=== PATIENT | female | born 1995 | race Two or more races ===

== ENCOUNTER → 2024-01-03 | Outpatient (REF) | payer OTHER | LOC: M PLALAB 14:22 | PROVIDERS: ATTEND Advanced Practice Midwife | DX: Z34.81 Encounter for supervision of other normal pregnancy, first trimester (principal); Z53.9 Procedure and treatment not carried out, unspecified reason ==

== ENCOUNTER → 2024-01-28 | Outpatient (CLI) | payer OTHER | LOC: M WHC 13:05 | PROVIDERS: ATTEND Advanced Practice Midwife | DX: Z36.89 Encounter for other specified antenatal screening (principal); Z3A.14 14 weeks gestation of pregnancy ==

== ENCOUNTER → 2024-01-28 | Outpatient (CLI) | payer OTHER ==
[2024-01-28 15:32] LABS: HEMATOCRIT 36.2 % (36.0-47.0); HEMOGLOBIN 12.2 g/dl (12.0-15.5); MEAN CORPUSCULAR HEMOGLOBIN 31.4 pg (27.0-33.0); MEAN CORPUSCULAR HGB CONC 33.7 g/dl (32.0-36.5); MEAN CORPUSCULAR VOLUME 93.1 fl (80.0-96.0); PLATELET COUNT, AUTOMATED 247 10^3/uL (150-450); RED BLOOD COUNT 3.89 10^6/uL (4.00-5.40)
[2024-01-28 16:54] LABS: GC DNA AMPLIFICATION NEGATIVE (NEGATIVE)
[2024-01-29 16:02] LABS: HIV 1&2 SCREEN NEGATIVE (NEGATIVE)
[2024-01-29 16:10] LABS: HEPATITIS C VIRUS ABY INDEX 0.02 INDEX (<0.8)
== END ==
LOC: M PLALAB 13:10
PROVIDERS: ATTEND Advanced Practice Midwife
DX: O30.091 Twin pregnancy, unable to determine number of placenta and number of amniotic sacs, first trimester (principal); Z3A.00 Weeks of gestation of pregnancy not specified

== ENCOUNTER → 2024-02-28 | Outpatient (CLI) | payer OTHER | LOC: M WHC 09:32 | PROVIDERS: ATTEND Advanced Practice Midwife | DX: Z34.82 Encounter for supervision of other normal pregnancy, second trimester (principal); Z3A.19 19 weeks gestation of pregnancy | CPT/HCPCS: 76811; G0463 ==

== ENCOUNTER → 2024-04-17 | Outpatient (CLI) | payer OTHER ==
[2024-04-17 15:22] LABS: HEMATOCRIT 35.7 % (36.0-47.0); HEMOGLOBIN 11.8 g/dl (12.0-15.5); MEAN CORPUSCULAR HEMOGLOBIN 31.6 pg (27.0-33.0); MEAN CORPUSCULAR HGB CONC 33.1 g/dl (32.0-36.5); MEAN CORPUSCULAR VOLUME 95.7 fl (80.0-96.0); PLATELET COUNT, AUTOMATED 240 10^3/uL (150-450); RED BLOOD COUNT 3.73 10^6/uL (4.00-5.40); WHITE BLOOD COUNT 12.8 10^3/uL (4.0-10.0)
[2024-04-17 15:52] LABS: GLUCOSE CHALLENGE TEST 1 HOUR 96 MG/DL (LESS THAN 140)
[2024-04-17 16:28] LABS: HIV 1&2 SCREEN NEGATIVE (NEGATIVE)
[2024-04-17 16:42] LABS: GC DNA AMPLIFICATION NEGATIVE (NEGATIVE)
[2024-04-17 19:11] LABS: HEPATITIS C VIRUS ABY INDEX 0.16 INDEX (<0.8)
== END ==
LOC: M PLALAB 11:19
PROVIDERS: ATTEND Obstetrics & Gynecology
DX: Z34.92 Encounter for supervision of normal pregnancy, unspecified, second trimester (principal)

== ENCOUNTER → 2024-05-05 | Outpatient (CLI) | payer OTHER | LOC: M WHC 08:45 | PROVIDERS: ATTEND Obstetrics & Gynecology | DX: Z34.93 Encounter for supervision of normal pregnancy, unspecified, third trimester (principal) ==

== ENCOUNTER → 2024-06-28 | Outpatient (REF) | payer OTHER | LOC: M SFHCWAGY 16:57 | PROVIDERS: ATTEND Obstetrics & Gynecology | DX: Z36.85 Encounter for antenatal screening for Streptococcus B (principal); Z3A.36 36 weeks gestation of pregnancy ==

== ENCOUNTER 2024-07-03 03:38 | Inpatient (IN) | payer OTHER ==
[~2024-07-03] VITALS: Ht 170.2 cm; Wt 86.4 kg
[2024-07-03] MEDS ORDERED: OXYTOCIN INJ 10UNITS/ML 1ML VIAL As Ordered ONE (03:58)
[2024-07-03] MEDS ORDERED: OXYTOCIN 30UNITS IN 0.9% NaCl 500ML IV BAG As Ordered ONE (03:58)
[2024-07-03] MEDS ORDERED: LIDOCAINE 1% MDV 20ML VIAL INFIL PRN (04:15)
[2024-07-03] MEDS ORDERED: OXYTOCIN DRIP 30 UNITS in IV 1 EA IV PRN (04:15)
[2024-07-03] MEDS ORDERED: LIDOCAINE 1% MDV 20ML VIAL As Ordered ONE (04:19)
[2024-07-03] MEDS ORDERED: UNRESOLVED CLARIFICATION ENTRY XX STA (04:21)
[2024-07-03] MEDS ORDERED: PRENTAB9 PO (04:24)
[2024-07-03] MEDS ORDERED: METF10004 PO (04:28)
[2024-07-03] MEDS ORDERED: LR 1,000 ML IV SCH (04:40)
[2024-07-03 04:41] LABS: CORD GAS ABE V -4.9; CORD GAS HCO3 V 17.7 MMOL/L; CORD GAS O2 SAT V 81.5 %; CORD GAS PCO2 V 28.3 mmHg; CORD GAS PH V 7.414 UNITS; CORD GAS SBC V 20.1 MMOL/L; CORD GAS TCO2 V 18.6 MMOL/L
[2024-07-03 04:42] LABS: CORD GAS ABE A -6.9; CORD GAS HCO3 A 20.2 MMOL/L; CORD GAS O2 SAT A 27.2 %; CORD GAS PCO2 A 46.1 mmHg; CORD GAS PH A 7.26 UNITS; CORD GAS PO2 A 14.9 mmHg; CORD GAS SBC A 17.3 MMOL/L; CORD GAS TCO2 A 21.6 MMOL/L
[2024-07-03] MEDS ORDERED: RHOGAM 300MCG (1500IU) INJ IM SCH (04:45)
[2024-07-03] MEDS ORDERED: METHYLERGONOVINE MALEATE 0.2 MG TAB PO PRN (04:45)
[2024-07-03] MEDS ORDERED: OXYTOCIN DRIP 30 UNITS in IV 1 EA IV SCH (04:45)
[2024-07-03] MEDS ORDERED: ACETAMINOPHEN 325 MG TAB PO PRN (04:45)
[2024-07-03] MEDS ORDERED: IBUPROFEN 600MG TAB PO PRN (04:45)
[2024-07-03 04:47] LABS: BASO # 0.1 10^3/uL (0.0-0.2); BASO % 0.3 % (0.0-1.0); EOS # 0.1 10^3/uL (0.0-0.5); EOS % 0.8 % (0.0-3.0); HEMATOCRIT 35.3 % (36.0-47.0); HEMOGLOBIN 12.1 g/dl (12.0-15.5); LYMPH % 23.2 % (24.0-44.0); MEAN CORPUSCULAR HEMOGLOBIN 31.5 pg (27.0-33.0); MEAN CORPUSCULAR HGB CONC 34.3 g/dl (32.0-36.5); MEAN CORPUSCULAR VOLUME 91.9 fl (80.0-96.0); MONO % 5.7 % (2.0-8.0); NEUTROPHILS % 69.6 % (36.0-66.0); PLATELET COUNT, AUTOMATED 243 10^3/uL (150-450); RED BLOOD COUNT 3.84 10^6/uL (4.00-5.40); WHITE BLOOD COUNT 17.2 10^3/uL (4.0-10.0)
[2024-07-03] MEDS: ACETAMINOPHEN 500 MG TAB PO PRN (05:02)
[2024-07-03] MEDS: OXYTOCIN DRIP 30 UNITS in IV 1 EA IV SCH (05:02)
[2024-07-03] MEDS: IBUPROFEN 800 MG TAB PO PRN (05:03)
[2024-07-03 06:02] LABS: HEPATITIS C VIRUS ABY INDEX 0.13 INDEX (<0.8)
[2024-07-03 06:40] VITALS: BP 137/84; O2SAT 96
[2024-07-03] MEDS: DOCUSATE SODIUM 100MG CAPSULE PO PRN (09:44)
[2024-07-03] MEDS: PRENATAL VITAMINS CHEWABLE TABLET PO SCH (09:44)
[2024-07-03] MEDS: DIBUCAINE 1% OINTMENT 30GM TOP PRN (09:44)
[2024-07-03 18:07] VITALS: BP 132/79; O2SAT 96
[2024-07-04 06:09] VITALS: BP 113/66; O2SAT 95
[2024-07-04 17:37] VITALS: BP 131/67; O2SAT 97
[2024-07-05 06:00] VITALS: BP 124/63; O2SAT 97
[2024-07-05] MEDS: MEASLES,MUMPS,RUBELLA VACCINE INJ (MMR-II) SC.IMMUN ONE (09:00)
== END 2024-07-05 15:50 | disposition home or self-care (01) | DRG 807 ==
LOC: M LDO 03:38 → M LDI 03:57 → M OBS 06:30
PROVIDERS: ADMIT Obstetrics & Gynecology; ATTEND Obstetrics & Gynecology
PROC: 10E0XZZ Delivery of Products of Conception, External Approach (ICD-10-PCS; principal; 2024-07-03)
DX: O69.81X0 Labor and delivery complicated by cord around neck, without compression, not applicable or unspecified (principal); Z37.0 Single live birth; Z3A.37 37 weeks gestation of pregnancy

== ENCOUNTER 2025-02-28 11:38 | Day surgery (SDC) | payer OTHER ==
[~2025-02-28] VITALS: Ht 170.2 cm; Wt 71.2 kg
[~2025-02-28 11:38] MED LIST: METF10004 PO; PRENTAB9 PO
[2025-02-28] MEDS ORDERED: LIDOCAINE 2% 100 MG/5 ML SDV (FOR ANES.) As Ordered ONE (12:34)
[2025-02-28 12:56] VITALS: TEMP 97.3
[2025-02-28 13:12] VITALS: BP 122/80; O2SAT 98
== END 2025-02-28 13:23 | disposition home or self-care (01) ==
LOC: M OPP 11:38
PROVIDERS: ATTEND Surgery
DX: Z12.11 Encounter for screening for malignant neoplasm of colon (principal); K64.0 First degree hemorrhoids; Z80.0 Family history of malignant neoplasm of digestive organs; Z79.899 Other long term (current) drug therapy; Z87.891 Personal history of nicotine dependence